=== PATIENT | female | born 1955 | race African-American/Black ===

== ENCOUNTER → 2017-01-26 | Outpatient (CLI) | payer MEDICARE, OTHER ==
[~2017-01-26] MED LIST: ALENDRONATE SOD70 M1 PO; ASPIRIN EC81 M1 PO; AZELASTINE137 MCG/01; BACLOFEN10 MG PO; BACTROBAN15 GM TOP; CALCIUM 500 +1 EAC5 PO; CARAFATE1 GM PO; CICLOPIROX TOP; COZAAR25 MG PO; CYANOCOBALAM1000 MCG PO; FERRO-TIME325 MG PO; FOLIC ACID1 MG PO; FOSAMAX70 MG PO; K-TAB ER20 MEQ PO; KCL PO; LACTULOSE10 G/15 M1 PO; LACTULOSE10 G/15 ML PO; LACTULOSE10 GM/152 PO; LASIX PO; LASIX20 MG PO; LEVAQUIN250 MG PO; LEVAQUIN750 M1 PO; LIORESAL10 MG PO; LOPRESSOR PO; LOTREL 5/20 MG1 CAP PO; MAG-OX 400400 M1 PO; MAG-OX 400400 MG PO; MAG-OXIDE400 MG PO; MELOXICAM15 MG PO; MOBIC15 MG PO; MORGIDOX100 MG PO; NEXIUM PO; NORCO 10-325 TA1 TAB PO; PANTOPRAZOLE SO40 MG PO; PROAIR RESPICL90 MCG INH; PROTONIX PO; PROTONIX20 MG DOB; SYNTHROID PO; SYNTHROID125 PO; SYNTHROID175 MCG PO; SYNTHROID25 MCG PO; TOPAMAX50 MG PO; VITAMIN C500 M1 PO; VITAMIN C500 MG PO; VOLTAREN75 MG PO; XIFAXAN550 MG PO
--- NOTE | ~2017-01-26 | XA30 ---
[facility] A Service of [facility] & [facility] RADIOLOGY TEXT RESULTS PATIENT: RICHARD JANE LOCATION: CIVR : 55 UNIT #: [id number] AGE: [address]: Leonidas Zuniga MD SEX: F ORDER DR: [id number] [facility]. [place], [place] [address] [id number] O MR#: [id number] Acc #: [id number] NAME: RICHARD JANE. : 1955 SEX: F STUDY DATE/TIME: 01/26/2017 12:20 UNIT: [facility] ROOM: STUDY DESCRIPTION: XA Arthrocentesis Major Joint Attending Physician: Leonidas Zuniga M.D. Ordering Physician: Leonidas Zuniga M.D. Primary Care Physician: No Primary Care Physician MEDICAL IMAGING REPORT This report is preliminary unless electronic signature is present EXAM Fluoroscopically-guided left hip injection INDICATION Left hip pain. PROCEDURE The risks, benefits, and alternatives to the procedure were explained to the patient, and signed, informed consent was obtained. She was placed supine on the angiographic table and was prepped and draped in the usual sterile fashion. Time-out was performed as per protocol skin and subcutaneous tissues were anesthetized with buffered lidocaine and a 22-gauge spinal needle was advanced into the joint space. Contrast was injected which confirmed location within the joint space and I subsequently instilled a combination of lidocaine Bupivacaine and Depo-Medrol. Needle was then removed and manual pressure was applied until hemostasis was obtained, patient tolerated the procedure well and there were no immediate complications. Total fluoroscopy time was 0.3 minutes and a single fluoroscopic image was obtained. IMPRESSION Technically successful fluoroscopically guided left hip injection as noted above fluoroscopy was used during the procedure and permanent images were saved. Please note this patient does have a healing fracture of the left inferior pubic ramus Dictated by... Sera Elizabeth M.D. THIS IS AN ELECTRONICALLY VERIFIED REPORT Sera Elizabeth M.D. at 02/01/2017 1:16 PM AFF/rnr [facility] A Service of [facility] & [facility] RADIOLOGY TEXT RESULTS PATIENT: RICHARD JANE LOCATION: [facility] #: [id number] : 55 UNIT #: [id number] AGE: [address]: Leonidas Zuniga MD SEX: F ORDER DR: TD: 01/27/2017 04:44 JOB #: [id number] MEDICAL IMAGING REPORT COPY
== END | disposition home or self-care (01) ==
LOC: CIVR 11:58
PROC: 3E0U33Z Introduction of Anti-inflammatory into Joints, Percutaneous Approach (ICD-10-PCS; principal; 2017-01-26)
PROC: 3E0U3BZ Introduction of Anesthetic Agent into Joints, Percutaneous Approach (ICD-10-PCS; 2017-01-26)
DX: M16.12 Unilateral primary osteoarthritis, left hip (principal); S32.592S Other specified fracture of left pubis, sequela
CPT/HCPCS: 77002; J1030; Q9966

== ENCOUNTER → 2017-05-08 | Outpatient (CLI) | payer MEDICARE, OTHER ==
--- NOTE | ~2017-05-08 | XA30 ---
[facility] A Service of [facility] & [facility] RADIOLOGY TEXT RESULTS PATIENT: RICHARD JANE LOCATION: [facility] : 55 UNIT #: [id number] AGE: [address]: Leonidas Zuniga MD SEX: F ORDER DR: [id number] [facility]. [place], [place] [address] [id number] O MR#: [id number] Acc #: [id number] NAME: RICHARD JANE. : 1955 SEX: F STUDY DATE/TIME: 05/08/2017 10:33 UNIT: [facility] ROOM: STUDY DESCRIPTION: XA Arthrocentesis Major Joint Attending Physician: Leonidas Zuniga M.D. Ordering Physician: Leonidas Zuniga M.D. Primary Care Physician: Panfilo Baires M.D. MEDICAL IMAGING REPORT This report is preliminary unless electronic signature is present EXAM Fluoroscopically-guided right hip injection INDICATION Right hip pain. Patient reports a history of a fall in September of 2016 and has had pain ever since. PROCEDURE The risks, benefits, and alternatives to the procedure were explained to the patient, and a signed, informed consent was obtained. She was placed supine on the angiographic table and was prepped and draped in usual sterile fashion. Time-out was performed as per protocol. Skin and subcutaneous tissues were anesthetized with buffered lidocaine and a 28-gauge spinal needle was advanced into the joint space. Contrast was injected which confirmed location within the joint space. Joint space then instilled with a combination of lidocaine, bupivacaine, and Depo-Medrol. Needle was then removed and manual pressure was applied until hemostasis was obtained. Patient tolerated the procedure well and there were no immediate complications. She is noted to have healing fractures of the inferior and superior pubic rami bilaterally. Total fluoroscopy time was 0.1 minutes. AK was 14 mGy. IMPRESSION Technically successful fluoroscopically-guided right hip injection as noted above. Fluoroscopy was used during the procedure and permanent images were saved. Please note patient is also noted to have healing bilateral superior and inferior pubic rami fractures. Dictated by... Sera Elizabeth M.D. THIS IS AN ELECTRONICALLY VERIFIED REPORT [facility] A Service of [facility] & [facility] RADIOLOGY TEXT RESULTS PATIENT: RICHARD JANE LOCATION: [facility] : 55 UNIT #: [id number] AGE: [address]: Leonidas Zuniga MD SEX: F ORDER DR: Sera Elizabeth M.D. at 05/11/2017 3:27 PM AFF/aa TD: 05/11/2017 08:08 JOB #: [id number] MEDICAL IMAGING REPORT Page 1 of 1 COPY
== END | disposition home or self-care (01) ==
LOC: CIVR 10:17
PROC: 3E0U33Z Introduction of Anti-inflammatory into Joints, Percutaneous Approach (ICD-10-PCS; principal; 2017-05-08)
PROC: 3E0U3BZ Introduction of Anesthetic Agent into Joints, Percutaneous Approach (ICD-10-PCS; 2017-05-08)
DX: M19.90 Unspecified osteoarthritis, unspecified site (principal); M25.551 Pain in right hip; S32.502D Unspecified fracture of left pubis, subsequent encounter for fracture with routine healing; S32.501D Unspecified fracture of right pubis, subsequent encounter for fracture with routine healing
CPT/HCPCS: 77002; J1030; Q9966

== ENCOUNTER 2017-07-04 15:23 | Inpatient (IN) | payer MEDICARE, OTHER ==
[~2017-07-04] VITALS: Ht 165.1 cm; Wt 65.9 kg
--- NOTE | ~2017-07-04 | EKG ---
PATIENT: RICHARD JANE UNIT #: [id number] Ventricular Rate: 103 BPM Atrial Rate: 103 BPM P-R Interval: 176 ms QRS Duration: 80 ms Q-T Interval: 372 ms QTC Calculation(Bezet): 487 ms P [place]: 72 degrees Calculated R [place]: 0 degrees Calculated T [place]: 53 degrees Diagnosis Line: Sinus tachycardia Diagnosis Line: Possible Left atrial enlargement Diagnosis Line: Borderline ECG Diagnosis Line: When compared with ECG of 22-SEP-2016 06:14, Diagnosis Line: No significant change was found Diagnosis Line: Confirmed by NIURKA RAMOS MD ([id number]) on Diagnosis Line: 07/04/2017 10:52:13 PM INTERPRETING MD: FERNANDEZ
--- NOTE | ~2017-07-04 | CO ---
Unit #: [id number] #: [id number] Patient: NELLY LYNCH [id number] [facility] [address] [facility]. [place], [place] [address] [id number] I MR#: [id number] NAME: NELLY LYNCH. ROOM: 341 Age: 62 Sex: F Admission Date: 07/04/2017 : 1955 Attending Physician: Bryce Tay M.D. Primary Care Physician: Primary Care Physician No CONSULTATION REPORT REASON FOR CONSULTATION Followup. HISTORY OF PRESENT ILLNESS Ms. Nelly Lynch is 62-year-old female seen in room 341, bed 1, at [facility] on 07/12/2017. The patient was lying comfortably in bed. Seemed somewhat anxious, nervous, confused. Able to answer her name, but unable to give any detailed information. No restraint needed. The patient seemed somewhat sleepy. Tolerating medication fairly well. The patient's CIWA protocol was discontinued and also Ativan was discontinued. The patient's vital signs: 98.2, 108, 16, 148/78. Oxygen saturation 100%. The patient was less agitated. The patient is currently on haloperidol 5 mg 3 times a day and Cogentin was discontinued. Complete review of systems: Unremarkable. MENTAL STATUS EXAMINATION General Appearance: The patient dressed casually in hospital attire, lying comfortably in bed. The patient has a sister. Attention span/concentration: Poor. Speech: Rambling. Poor articulation. Orientation in self. Mood and affect labile. Thought process: Circumstantial. Thought content: Guarded, paranoid, but denied any thoughts of harming self or others. Thought process: Circumstantial. Thought content: Recent and remote memory: Language unable to assess. Fund of knowledge: Unable to assess. Insight and judgment: Impaired. DIAGNOSES PSYCHIATRIC: Delirium F05. Psychosis, not otherwise specified, F29.0 ASSESSMENT AND PLAN Advised to continue with a sitter, one-to-one monitoring. Continue with Haldol. Advised to hold if the patient too sleepy. Increase with a plan to discontinue Cogentin, but monitor for any EPS symptom. Also, cut back on Haldol slowly. Please feel free to call if any question, telephone #[phone]. Dictated by... Gerry Persaud M.D. Unit #: [id number] #: [id number] Patient: NELLY LYNCH MARIALUISA/nasim TD: 07/13/2017 10:29 JOB #: [id number] CONSULTATION REPORT Page 1 of 1 X Gerry Persaud MD X CONSULTATION REPORT
--- NOTE | ~2017-07-04 | XA198 ---
[facility] A Service of [facility] RADIOLOGY TEXT RESULTS PATIENT: RICHARD JANE LOCATION: [facility] 341 : 55 UNIT #: [id number] AGE: [address]: Harry Gordon MD SEX: F ORDER DR: [id number] [address] [address] [id number] I MR#: [id number] Acc #: [id number] NAME: RICHARD JANE : 1955 SEX: F STUDY DATE/TIME: 07/16/2017 8:59 UNIT: [address] ROOM: [facility] STUDY DESCRIPTION: XA Spinal Puncture Attending Physician: Harry Gordon M.D. Ordering Physician: Bryce Tay M.D. Primary Care Physician: No Primary Care Physician MEDICAL IMAGING REPORT This report is preliminary unless electronic signature is present EXAM Fluoroscopically-guided lumbar puncture. CLINICAL HISTORY Fever and confusion. Lumbar puncture requested. PROCEDURE After informed consent was obtained, a skin site was selected with fluoroscopic guidance and marked and sterilely prepped and draped. Following local anesthesia, initial attempt at L4-5 yielded a no fluid despite satisfactory confirmation of needle tip position within the spinal canal. Subsequently, at the L3-4 level, a 20-guage spinal needle was used after local anesthesia and 10 mL of clear colorless CSF was obtained without complication. Total fluoro time 2.7 minutes and single spot image preserved. IMPRESSION Successful fluoroscopically guided lumbar puncture. 10 mL of clear colorless was CSF was obtained without complication. Dictated by... Oscar Reynolds M.D. THIS IS AN ELECTRONICALLY VERIFIED REPORT Oscar Reynolds M.D. at 07/20/2017 4:09 PM TEV/jww TD: 07/16/2017 23:34 JOB #: [id number] [facility] A Service [facility] RADIOLOGY TEXT RESULTS PATIENT: RICHARD JANE LOCATION: [facility] 341 : 55 UNIT #: [id number] AGE: [address]: Harry Gordon MD SEX: F ORDER DR: MEDICAL IMAGING REPORT Page 1 of 1 COPY
--- NOTE | ~2017-07-04 | CO ---
Unit #: [id number] #: [id number] Patient: RICHARD JANE [id number] [place], [place] [address] [id number] I MR#: [id number] NAME: RICHARD JANE. ROOM: 341 Age: 62 Sex: F Admission Date: 07/04/2017 : 1955 Attending Physician: Bryce Tay M.D. Primary Care Physician: Primary Care Physician No Consultation Date: 07/11/2017 CONSULTATION REPORT REASON FOR CONSULTATION Hepatic encephalopathy, psychosis, and delirium. HISTORY OF PRESENT ILLNESS Ms. Villegas is a 62-year-old female, seen in room 341, bed 1, on 07/11/2017. The patient is keeping her eyes closed. The patient was agitated and was pulling her IV. Needing one-to-one sitter. The patient talking to the kenney, disorganized behavior, delusional, attending to internal stimuli, auditory and visual hallucination, agitation. Vital signs; temperature 98.6, heart rate 117, respiratory rate 16, blood pressure 143/82, and oxygen saturation 100%. The patient was unable to give any reliable information. Information obtained from the nursing staff, sitter, as well as chart reviewed. The patient diagnosed with hepatic encephalopathy, UTI, history of cirrhosis, hypothyroidism, and multiple health conditions. PAST PSYCHIATRIC HISTORY Remarkable for history of depression and anxiety. No history of any inpatient treatment or suicide attempt. MEDICAL HISTORY History of hypertension, cirrhosis secondary to alcohol abuse, mitral valve prolapse, chronic low-back pain, traumatic brain injury, depression, and knee surgery. ALLERGIES To penicillin, sulfa, aspirin, zinc, Norvasc, and latex. HOME MEDICATIONS Albuterol, Fosamax, ascorbic acid, aspirin, Astelin, baclofen, calcium, Nexium, folic acid, Lasix, lactulose, Synthroid, Cozaar, magnesium oxide, Mobic, Lopressor, and Bactroban. FAMILY HISTORY AND SOCIAL HISTORY The patient's family history is unavailable at this time. No known history of any abuse, but history of alcohol abuse as mentioned above. REVIEW OF SYSTEMS Complete review of systems is unremarkable except as mentioned above. MENTAL STATUS EXAMINATION General appearance; the patient dressed in hospital attire, lying in a recliner, confused, and agitated. Attention span and concentration, poor. Speech, difficult to understand. Orientation, unable to assess. Mood and Unit #: [id number] #: [id number] Patient: RICHARD JANE affect, labile. Thought process and thought content, unable to assess. Recent and remote memory, language, and fund of knowledge, unable to assess. Insight and judgment, impaired. DIAGNOSES Psychiatric: Delirium, F05 and psychosis, not otherwise specified, F29.0. Secondary diagnosis: Deferred. Medical diagnosis: Please refer to H and P. Stressors: Psychosocial stressors. ASSESSMENT/PLAN 1. Unable to provide supportive psychotherapy and psychoeducation as the patient unable to comprehend. 2. Recommending to continue with sitter and one-to-one monitoring for safety. Continue with the CIWA protocol. Recommending Haldol 5 mg t.i.d., Cogentin 1 mg t.i.d., and Ativan 0.5 mg t.i.d. Advised to hold medication if the patient too sleepy. We will continue to follow and make further adjustment if needed. Please feel free to call if any questions, telephone #[phone]. Dictated by... Rosi Paulino/jordan TD: 07/11/2017 19:46 JOB #: [id number] CONSULTATION REPORT Page 1 of 1 X Gerry Persaud MD X CONSULTATION REPORT
--- NOTE | ~2017-07-04 | CO ---
Unit #: [id number] #: [id number] Patient: RICHARD JANE [id number] [facility] [address] [facility]. [place], [place] [address] [id number] I MR#: [id number] NAME: RICHARD JANE. ROOM: 341 Age: 62 Sex: F Admission Date: 07/04/2017 : 1955 Attending Physician: Harry Gordon M.D. Primary Care Physician: Primary Care Physician No Consultation Date: 07/15/2017 CONSULTATION REPORT PRIMARY CARE PHYSICIAN Not known. REASON FOR CONSULTATION Mental status changes, possible hepatic encephalopathy. PATIENT IDENTIFICATION This is a 62-year-old right-handed white female, who was evaluated in room 342 at [facility]. SOURCE OF INFORMATION Actually the medical records and my discussion with Dr. Tay. PROBLEM LIST 1. She was admitted for hepatic encephalopathy and UTI. She had also accelerated hypertension. She has Graves disease. 2. History of GI bleeding and prior EGD showing Bell-Wilder tear. 3. Mitral valve prolapse. 4. Chronic back pain, status post epidural injection. 5. Traumatic brain injury 13 years ago. 6. Depression. 7. Hysterectomy and had fibroids. 8. Knee surgery. 9. Previous colonoscopy with diverticular disease and possible thyroidectomy. 10. Psychotic issues. HISTORY OF PRESENT ILLNESS This is a 62-year-old female, who was actually admitted on 07/04/2017 and I talked to Dr. Tay yesterday and he was concerned that despite all the labs improving, she still has significant lag, so we requested MRI which did not show any acute stroke, but there is a possibility of a basal ganglia and temporal increased signal and herpetic encephalitis could not be ruled out. She seemed to be improving. She did tell me she was in the hospital. She is followed some simple commands, but again fixing everything else and still there is deficit that was concerning. There is no real neck stiffness because it does look like her neck is stiff, but when I asked her to do chin to chest, she had a good effort. There was no Kernig's or Brudzinski's. Nobody has witnessed the seizure and she may be improving, but still deficit is there, so the combined consensus was to look for LP and we will go from there. No history of falls or injuries. Unit #: [id number] #: [id number] Patient: RICHARD JANE Taking multiple medication. Nothing changes. Prior history of lipoma also. Psychiatry is seen for possibility of delirium and they are treating her aggressively. As I mentioned before, some improvement. PAST MEDICAL HISTORY As discussed above. PAST SURGICAL HISTORY As discussed above. ALLERGIES Penicillin, sulfa, aspirin, Zinc, Norvasc, latex. HOME MEDICATIONS Albuterol 2 puffs q.i.d. as needed., Fosamax 70 mg a day, ascorbic acid 500 mg t.i.d., aspirin 81 mg daily, Astelin nasal spray, baclofen 10 mg t.i.d., calcium plus D two tablets b.i.d., Nexium 40 mg daily, iron sulfate 325 mg t.i.d., folic acid 1 mg daily, Lasix 40 mg daily, lactulose 30 mL q.i.d., Synthroid 0.175 mg daily, Cozaar 25 mg daily, magnesium oxide daily, Mobic 15 mg daily, Lopressor 12.5 mg b.i.d., Bactroban ointment, Sarna lotion, Xifaxan 550 mg b.i.d. FAMILY HISTORY No primary neurologic issues. No diabetes. SOCIAL HISTORY No recent alcohol, tobacco, or drugs, but her urine drug screen positive for marijuana . REVIEW OF SYSTEMS Really could not be obtained in detail because of her present delirious state. When asked specifically, she has no headaches. She has no arm pain. No chest pain. No shortness of air. She is following some simple commands. No acute back problems. Psychiatric issue was delirium. Neurologic issue was weakness. No acute hematologic, dermatologic, or endocrine issues. No active nausea, vomiting, or diarrhea. No shortness of air. No chest pain. PHYSICAL EXAMINATION VITAL SIGNS: Temperature 98.8, pulse 129, respirations 16, blood pressure is 146/75, O2 saturations were 97% to 100%, weight of 139 pounds. NEUROLOGIC: The patient is lethargic, but arousable. She is having asterixis. She is having some myoclonus. She can tell me she is at [facility], but otherwise she is not really able to tell me anything about orientation. She can name. She can follow some simple commands. She gave me thumbs up. No right or left confusion. She moved all extremities. Cranial examination; she does respond to threats in the primary mil[place]. Unit #: [id number] #: [id number] Patient: RICHARD JANE Pupils are sluggishly reactive. Eye movements are conjugate. I did not see any ptosis. I did not see any nystagmus. Extraocular movements are intact. Sensation on the face and scalp are normal. Strength of muscles of facial expression seemed to be symmetric. Hearing seemed to be intact. Tongue was midline. I could not visualize oropharynx or uvula. Head turning was spontaneous. I am concerned that there is no neck stiffness, maybe she is keeping it stiff and when asked to try to do chin to chest, she attempted pretty good. Motor examination; she has decreased bulk and tone. She has asterixis. Strength was 4/5 all over. Sensory examination intact for soft touch and pain. Extinction is questionable. Romberg was not evaluated. Gait examination was deferred. I could not get any reflexes. Toes are mute. Coordination really could not do wifuxq-gg-dwua-to-finger rapid alternating movements or epob-mo-aawk. DIAGNOSTIC STUDIES LABORATORY RESULTS: AST is 59, it was not really bad; alkaline phosphatase is 128 and then again that is stable. Her ammonia has dropped from 194 to 14 day before yesterday. It was low in the last few days anyway. B12 was checked 1500. TSH was 0.06, free T4 was 2.80. White count was 7.2, H and H of 11.7 and 33.5, platelet count was 144. Urine drug screen on admission showed positive benzodiazepines, marijuana, and opioids. Urinalysis; also possibility of UTI with 10 to 25 wbc's on admission and 4+ bacteria on admission. IMAGING STUDIES: Brain MRI which was reviewed. The concern is the signal change could this be herpetic encephalitis that could she have had seizures. There is nothing suggesting that she has had any seizure-like activity. IMPRESSION 1. Encephalopathy. There were multiple issues and this all could be a hepatic encephalopathy and slow recovery and lag, but I agree with Dr. Tay that we need to look at other possibilities and check LP, start antivirals. I will check other labs and we will go from there. He is starting acyclovir. I do not think this is active infection. Otherwise, her tachycardia is concerning could she be undergoing some sort of withdrawal. We will see how things log turner. I will keep you informed. Call me for any other questions, issues, or concerns. I will check EEG if needed. I will consider antiepileptics if needed, but right now, the differential diagnosis is multifactorial toxic and metabolic encephalopathy. 2. Rule out herpetic encephalitis and go from there. Dictated by... Rosi Cortes/jordan TD: 07/16/2017 18:36 JOB #: [id number] Unit #: [id number] #: [id number] Patient: LIANE JANECRISTO Isidro CONSULTATION REPORT Page 1 of 1 X Anita Kline MD X CONSULTATION REPORT
--- NOTE | ~2017-07-04 | HP ---
Unit #: [id number] #: [id number] Patient: RICHARD JANE [id number] [address] [address] [id number] I MR#: [id number] NAME: RICHARD JANE. ROOM: 341 Age: 62 Sex: F Admission Date: 07/04/2017 : 1955 Attending Physician: Cora Fallon M.D. Primary Care Physician: No Primary Care Physician HISTORY AND PHYSICAL CHIEF COMPLAINT Hepatic encephalopathy, UTI. HISTORY This 62-year-old female with cirrhosis, hypothyroidism, is admitted for hepatic encephalopathy. I am told by the ER physician that the patient stopped her lactulose recently. She became increasingly confused and was brought to this emergency department this afternoon with initial blood pressure 194/94. Ammonia level was 194. In the ER she was given two doses of lactulose, bolused with IV fluids, given a p.o. Rally pack. She is quite lethargic on exam. She does arouse, however. PAST MEDICAL HISTORY 1. Possible hypertension in the past. 2. Cirrhosis secondary to alcohol abuse with hepatic encephalopathy. 3. Graves disease with resultant hypothyroidism, status post treatment. 4. Upper GI bleed, admitted 08/2015. EGD showed gastritis or Bell-Wilder tear. 5. Mitral valve prolapse. 6. Chronic low back pain, status post epidural steroid injections. 7. Previous echo showing normal ejection fraction. 8. Traumatic brain injury 13 years ago. 9. Depression. 10. Hysterectomy with fibroids. 11. Knee surgery. 12. Previous colonoscopy with diverticular disease. 13. Possible thyroidectomy. ALLERGIES Penicillin, sulfa, aspirin, zinc, Norvasc, latex. HOME MEDICATIONS 1. Albuterol two puffs q.i.d. as needed. 2. Fosamax 70 mg daily. 3. Ascorbic acid 500 mg t.i.d. 4. Aspirin 81 mg daily. 5. Astelin nasal spray. 6. Baclofen 10 mg t.i.d. 7. Calcium plus D, two tablets b.i.d. 8. Nexium 40 mg daily. 9. Iron sulfate 325 mg t.i.d. 10. Folic acid 1 mg daily. Unit #: [id number] #: [id number] Patient: RICHARD JANE 11. Lasix 40 mg daily. 12. Lactulose 30 mL q.i.d. 13. Synthroid 0.175 mg daily. 14. Cozaar 25 mg daily. 15. Magnesium oxide daily. 16. Mobic 15 mg daily. 17. Lopressor, I believe is 12.5 mg b.i.d. 18. Bactroban ointment. 19. Sarna lotion. 20. Xifaxan 550 mg b.i.d. FAMILY HISTORY Negative for diabetes. SOCIAL HISTORY The patient no longer smokes, no longer drinks alcohol. REVIEW OF SYSTEMS Impossible to obtain as patient is fairly lethargic. PHYSICAL EXAMINATION GENERAL: Lethargic 62-year-old female who does arouse. VITAL SIGNS: Temperature 98.5, pulse 124, respirations 18, blood pressure 194/94. O2 saturation is 100% on room air. HEENT: Eyes PERRLA. Pharynx benign from what I can tell. NECK: Supple without adenopathy or thyromegaly. CHEST: Clear. CARDIAC: Normal S1 and S2 without murmur. ABDOMEN: Bowel sounds are present. No hepatosplenomegaly, tenderness or masses. EXTREMITIES: Without C, C or E. Pedal pulses are present. NEUROLOGIC EXAMINATION: The patient is somnolent but does arouse. Moves her extremities, says her name. DIAGNOSTIC STUDIES LABORATORY: Admission labs - hematocrit is 41.6, MCV is 101.4, normal white count, platelet count is 113. Has been low in the past as well. INR normal. SMA-12 - sodium 147, chloride 113, albumin 3.4, AST 68, ALT 52, alk. phos. 217. These values are higher than previously. Ammonia level 194, TSH is low at 0.21. Urine tox screen positive for benzos, marijuana, opiates. Urinalysis - 1+ leukocyte esterase with 10-25 white cells, 4+ bacteria. IMAGING: Chest x-ray - no acute disease. CARDIOVASCULAR: EKG - sinus tachycardia, rate 103, normal appearing. ASSESSMENT 1. Hepatic encephalopathy with underlying cirrhosis. Patient stopped her lactulose. 2. Positive urine tox screen suspicious for polysubstance abuse. 3. UTI. 4. Graves disease, now hypothyroid after treatment. 5. History of GI bleeding. Unit #: [id number] #: [id number] Patient: RICHARD JANE 6. Accelerated hypertension. 7. Mild hypernatremia. PLANS 1. Restart lactulose and Xifaxan. 2. Hypotonic IV fluids. 3. Rocephin. 4. SCDs for DVT prophylaxis. 5. Recheck all labs in the morning. 6. One dose of Narcan. 7. Blood pressure control. Dictated by Rosi Villa/df TD: 07/05/2017 05:26 JOB #: [id number] HISTORY AND PHYSICAL Page 1 of 1 X Cora Fallon MD X HISTORY AND PHYSICAL
--- NOTE | ~2017-07-04 | CO ---
Unit #: [id number] #: [id number] Patient: NELLY LYNCH [id number] [address] [address] [id number] I MR#: [id number] NAME: NELLY LYNCH. ROOM: 341 Age: 62 Sex: F Admission Date: 07/04/2017 : 1955 Attending Physician: Bryce Tay M.D. Primary Care Physician: No Primary Care Physician Consultation Date: 07/13/2017 CONSULTATION REPORT REASON FOR CONSULTATION Followup. DISCUSSION Ms. Nelly Lynch is a 62-year-old -Slov[place] female seen in room 341, bed 1 on 07/13/2017. Patient dressed in hospital attire, very guarded, paranoid. Patient unable to give any reliable information, able to tell her name. No agitation. Patient did not require any restraint. No sitter. Patient continues to be confused. Vital signs are 98.2, 133, 20, 158/73, oxygen saturation 100%. REVIEW OF SYSTEMS A complete review of systems unremarkable. MENTAL STATUS EXAMINATION General appearance: Patient dressed in hospital attire. Speech almost whispering, minimal output. Orientation: Unable to assess. Mood and affect flat. Thought process in coherent. Thought content: Unable to assess. Recent and remote memory, language, fund of knowledge unable to assess. Insight and judgment impaired. DIAGNOSIS Delirium, F05. ASSESSMENT AND PLAN Recommending at this time to continue with the Haldol but advised to Cogentin along with that, 0.5 mg three times a day to prevent any EPS symptoms. Will continue to follow. Please feel free to call if any questions, . Dictated by... Rosi Paulino TD: 07/15/2017 13:22 JOB #: [id number] Unit #: [id number] #: [id number] Patient: NELLY LYNCH CONSULTATION REPORT Page 1 of 1 X Gerry Persaud MD CONSULTATION REPORT
--- NOTE | ~2017-07-04 | CO ---
Unit #: [id number] #: [id number] Patient: NELLY LYNCH [id number] [address] [address] [id number] I MR#: [id number] NAME: NELLY LYNCH. ROOM: 341 Age: 62 Sex: F Admission Date: 07/04/2017 : 1955 Attending Physician: Harry Gordon M.D. Primary Care Physician: Primary Care Physician No Consultation Date: 07/17/2017 CONSULTATION REPORT DISCUSSION Ms. Nelly Lynch is a 62-year-old female, diagnosed with hepatic encephalopathy, seen on 07/17/2017 in room 341, bed 1. The patient was unable to give any reliable information. The patient seemed to be preoccupied, responsive to her name, but unable to give any reliable information. Information was obtained from nursing staff. The patient did not require any seclusion or restraint. No sitter was needed. The patient's vital signs; temperature 98.8, pulse 118, respirations 18, blood pressure 126/67, and oxygen saturation 98%. The patient is tolerating the medications fairly well. No side effects from medication. director workers compensation is currently working on appropriate placement for the patient. The patient is not eating well, but compliant with medication. REVIEW OF SYSTEMS The patient's complete review of systems unremarkable. MENTAL STATUS EXAMINATION General appearance; the patient is dressed casually in hospital attire, lying comfortably, seemed somewhat preoccupied. Attention span and concentration, poor. Speech, difficult to understand. Orientation, unable to assess. Mood and affect, labile. Thought process and thought content, unable to assess, guarded and paranoid. Recent and remote memory, unable to assess. Language, fund of knowledge, insight and judgment, impaired. DIAGNOSES Psychiatric: Delirium, F05; hepatic encephalopathy. ASSESSMENT/PLAN Advised to continue with current medication and therapeutic protocol. If needed, consider further adjustment of medication. Please feel free to call if any question, telephone #[phone]. Dictated by... Gerry Persaud M.D. MARIALUISA/jordan TD: 07/18/2017 02:55 JOB #: [id number] Unit #: [id number] #: [id number] Patient: NELLY LYNCH CONSULTATION REPORT Page 1 of 1 X Gerry Persaud MD CONSULTATION REPORT
--- NOTE | ~2017-07-04 | FU ---
[facility] Nutrition Therapy DATE: 07/17/17 Patient: RICHARD JANE Physician: ANY Address: [address] [place] [address] Room/Bed: [address] [place] [address], Zip: [place] [address] Admit Date: 07/04/17 Date of : [birth year] Height: 5 5 Weight: 143 65.2 NUTRITION MONITORING/FOLLOW-UP: Reason: Nutrition follow-up Admitting dx: 62 y/o female admitted with hepatic encephalopathy Anthropometrics: Ht: 65", admission wt: 69 kg, current wt: 65.2 kg, BMI: 25 (overweight; based on admission wt) Labs: Reviewed Meds: Reviewed GI: BM 07/16 Skin: Issues noted, no edema Assessment: Chart reviewed, events noted. Per nursing, although the patient has had a clear liquid diet ordered in [facility] since admission, she has been on fulls and then regular texture since 07/12 (per [employer] recs), but the diet order change in [facility] was not addressed until today. The patient is a feeder. She has been accepted at [facility], pending discharge. See nutrition dx, goals and recs below. Will follow. Dx: Inadequate oral intake r/t AMS AEB CL/NPO x 8 days - RESOLVED New nutrition dx: Predicted suboptimal energy intake r/t AMS AEB recent diet advancement, possible need for ONS. Intervention: Ensure TID? Monitoring, Evaluation and Goals: 1. Tolerance of PO diet advancement with PO intake > 50% of meals - IN PROGRESS 2. Maintain weight status - IN PROGRESS 3. Lytes WNL - MET Monitor: per protocol, criteria to determine if above goals met Recommendations: 1. Continue regular diet with thin liquids. Patient requires full feeding assistance. 2. If PO intake is < 50% of meals please order Ensure Enlive BID. [facility] Nutrition Therapy DATE: 07/17/17 Patient: RICHARD JANE Physician: ANY Address: [address] [place] [address] Room/Bed: [address] [place] [address], Zip: [place] [address] Admit Date: 07/04/17 Date of : [birth year] Height: 5 5 Weight: 143 65.2 Status: Mild nutrition risk Respectfully, Selin Maguire RD, LD Food and Nutritional Services [facility] cc: client file
--- NOTE | ~2017-07-04 | A ---
[facility] Nutrition Therapy DATE: 07/09/17 Patient: RICHARD JANE Physician: ANY Address: [address] [place] [address] Room/Bed: [address] [place] [address], Zip: [place] [address] Admit Date: 07/04/17 Date of : [birth year] Height: 5 5 Weight: 154 70 NUTRITIONAL ASSESSMENT: REASON: NPO/ clear liquids x 5 days 62 yo female admitted for hepatic encephalopathy PMH: EtOH abuse, hypothyroid, diverticular disease, GI bleed, TBI Anthropometrics: Ht: 65" Wt: 69 kg BMI: 25.3 Labs: Na+ 132 BUN 5 Creat 0.5 Mg++ 1.3 NH3+ 55 (from 07/08) Meds: NaCl + thiamine, lactulose, therapeutic formula, zofran, MgS04, KCl, protonix, xifaxin, synthroid (PO) I/O & Bowel function: 1500/3, last BM 07/09 Skin Integrity: Skin tear RFA No edema noted Diet: Clear liquid Assessment: Chart reviewed, events noted. 62 yo female with h/o alcohol abuse admitted for hepatic encephalopathy. Pt has been NPO or on clear liquids x 5 days. Clear liquid diet ordered 07/06. Pt continues to be confused with AMS per RN report. RN believes pt would benefit from feeding assistance, because she does not eat unless prompted. RN reports that the pt has had minimal PO intake of clear liquids today. Pt is not appropriate for nutrition interview/ diet education at this time. RD explained to RN that the pt would benefit from supplemental nutrition, may need enteral access if PO intake does not improve. Dx: Inadequate oral intake RT AMS, hepatic encephalopathy AEB clear liquids/ NPO x 5 days. Intervention: 1. Advance to regular diet once feasible 2. Ensure clear TID Monitoring, Evaluation and Goals: 1. Oral intake; tolerate 50-100% of meals and supplements 2. Weight; prvent unintentional weight loss 3. Prevent micro/ macronutrient deficiency [facility] Nutrition Therapy DATE: 07/09/17 Patient: RICHARD JANE Physician: AYN Address: [address] [place] [address] Room/Bed: [address] [place] [address], Zip: [place] [address] Admit Date: 07/04/17 Date of : [birth year] Height: 5 5 Weight: 154 70 Recommendations: 1. Please provide feeding assistance, as RN reports that the pt does not eat unless prompted. 2. Ensure clear TID for supplemental nutrition. 3. Once medically feasible, advance to a regular diet as tolerated. 4. Continue MVI + minerals and thiamine supplementation. 5. If unable to advance to solid food/ regular diet, consider obtaining enteral access for supplemental nutrition. If ordered by MD, would start Jevity 1.5 @ 20 mL/hr x 20 hrs (hold for two hours before and two hours after synthroid administration). -Increase by 10 mL q 8 hrs as tolerated to goal of 60 mL/hr x 20 hrs to provide: 1800 kcals/ 77 grams protein/ 912 mL free H20 Pt is at moderate nutritional risk. RD will follow hospital course per protocol. Respectfully, ELIZA DURON RD, LD Food and Nutritional Services [facility] cc: client file
--- NOTE | ~2017-07-04 | CO ---
Unit #: [id number] #: [id number] Patient: RICHARD JANE H [id number] [address] [place], [place] [address] [id number] I MR#: [id number] NAME: RICHARD JANE ROOM: 341 Age: 62 Sex: F Admission Date: 07/04/2017 : 1955 Attending Physician: Harry Gordon M.D. Primary Care Physician: Primary Care Physician No CONSULTATION REPORT DICTATOR Dr. Bryce Tay. HOSPITAL COURSE The patient is a 32-year-old woman with a history significant for cirrhosis, hypothyroidism, and was admitted for hepatic encephalopathy. Her ammonia level was 194. The patient was started on lactulose and rifaximin, and her ammonia level eventually returned normal range. However, the patient continued to have metabolic encephalopathy. She continued to remain confused. Initially, her urinalysis demonstrated 10 to 25 wbc's. She was started on IV antibiotic Rocephin. Urine culture grew Klebsiella pneumoniae, which was sensitive to Rocephin. Followup urinalysis demonstrated resolution of UTI after completing her course of Rocephin. Also on admission, the patient had hypernatremia with a sodium of 148. She was given IV fluids for hydration and her sodium had stabilized around 135. The patient has a history of hypothyroidism and has been on Synthroid 175 mcg at home. Followup TSH demonstrated a TSH of 0.06 and a free T4 of 2.8. Her Synthroid dose has been reduced from 175 mcg to 100 mcg. Preliminary blood cultures show no growth up to 24 hours. The patient underwent an MRI of her brain for evaluation of continued encephalopathy, which demonstrated no acute stroke, no space occupying lesion, no hydrocephalus, no midline shift. However, there was increased T2 signal noted bilaterally in the basal ganglia and bilaterally in the medial aspects of the temporal lobes. Therefore, acyclovir has been started and a lumbar puncture has been scheduled to evaluate and rule out herpes encephalitis with HSV PCR. Neurology and Psychiatry had been consulted on the patient. Dictated by... Rosi Negrete/jordan TD: 07/16/2017 11:48 JOB #: [id number] Unit #: [id number] #: [id number] Patient: RICHARD JANE CONSULTATION REPORT Page 1 of 1 X X CONSULTATION REPORT
--- NOTE | ~2017-07-04 | CO ---
Unit #: [id number] #: [id number] Patient: RICHARD JANE [id number] [address] [place], [place] [address] [id number] I MR#: [id number] NAME: RICHARD JANE. ROOM: 341 Age: 62 Sex: F Admission Date: 07/04/2017 : 1955 Attending Physician: Bryce Tay M.D. Primary Care Physician: Primary Care Physician No Consultation Date: 07/06/2017 CONSULTATION REPORT BRIEF HISTORY The patient is a 62-year-old lady, who presents with frequent falling, confusion, dizziness, and found to be acutely alcohol intoxicated. I am asked to evaluate for a mass on the right tibial region. PAST MEDICAL HISTORY Cardiac dysfunction, hypertension, psych history. PAST SURGICAL HISTORY Hysterectomy, thyroid radiation. HOME MEDICATIONS Baclofen, Lasix, lactulose, Topamax, vitamin C, folic acid, Protonix, and Synthroid. SOCIAL HISTORY Daily alcohol use. No smoking. FAMILY HISTORY Unknown. REVIEW OF SYSTEMS No cardiopulmonary complaints at this time. Else, I attempted to review systems but the patient acutely confused. PHYSICAL EXAMINATION GENERAL: She is confused, but alert. HEENT: Unremarkable. NECK: Supple. No JVD. Trachea midline. LUNGS: Clear to auscultation. Bilateral breath sounds symmetric. CARDIOVASCULAR: Regular rate and rhythm. ABDOMEN: Soft, nontender, and nondistended. I palpate no masses. No hepatosplenomegaly. EXTREMITIES: Shows a 3 x 2 cm subcutaneous mass on the right tibia. This is freely mobile, superficial, and does not appear to be connected to the underlying bone. There is no erythema. There is no fluctuance. This is smooth in character. ASSESSMENT AND PLAN Likely benign lipoma. Would recommend observation only. Dictated by... El Leon M.D. Unit #: [id number] #: [id number] Patient: RICHARD JANE JNO/modl TD: 07/06/2017 07:49 JOB #: [id number] CONSULTATION REPORT Page 1 of 1 X El Leon MD CONSULTATION REPORT
--- NOTE | ~2017-07-04 | FU ---
[facility] Nutrition Therapy DATE: 07/12/17 Patient: RICHARD JANE Physician: ANY Address: [address] [place] [address] Room/Bed: [address] [place] [address], Zip: [place] [address] Admit Date: 07/04/17 Date of : 55 Height: 5 5 Weight: 152 69 NUTRITION MONITORING/FOLLOW-UP: Reason: Nutrition follow-up Admitting dx: 62 y/o female admitted with AMS, hepatic encephalopathy Anthropometrics: Ht: 65", admission wt: 69 kg, current wt: 69 kg, BMI: 25.3 Labs: AST 52, NH3 31, Mg 1.5 Meds: Xifaxan, lactulose, PPI, MVI with minerals, PO synthroid, psych meds noted GI: BM 07/11 Skin: skin tear RFA, excoriation morgna/buttock, no edema Estimated Nutrition Needs: 5728-2727 kcals/day (25-30 kcals/kg) 69-83 g protein/day (1-1.2 g/kg) Fluids consistent with kcal needs or per MD Assessment: Chart reviewed, events noted. Patient is no longer in restraints but still has AMS and confusion, is with a sitter. Dr. Persaud is now following her. Her ammonia levels have improved. She remains on a clear liquid diet (NPO/clears since admission x 8 days). Per the patient's sitter she only slept about a half hour last night, so she has been sleeping a lot today and has not had any clear liquids yet. There is a full tray at bedside with mixed abad Ensure clear. RD encouraged trying the Ensure clear. The patient herself is not appropriate to interview. Per [employer] yesterday the patient is cleared for regular texture and thin liquids, however it seems there are no plans to advance her diet as of yet due to her mental status. Also no plans for enteral nutrition. RD informed sitter we would continue to follow. See recs below. Dx: Inadequate oral intake r/t AMS, hepatic encephalopathy AEB NPO/clear liquids x 8 days - ACTIVE Intervention: Diet advancement per MD, continue ONS Monitoring, Evaluation and Goals: Previous goals: 1. PO intake 50-100% of meals - NOT MET 2. Maintain current weight status - MET 3. Prevent micro/macro nutrient deficiencies - IN PROGRESS (Mg low) [facility] Nutrition Therapy DATE: 07/12/17 Patient: RICHARD JANE Physician: ANY Address: [address] [place] [address] Room/Bed: [address] [place] [address], Zip: [place] [address] Admit Date: 07/04/17 Date of : 55 Height: 5 5 Weight: 152 69 New goals: 1. Tolerance of oral diet advancement with PO intake 50-100% of meals/supps. 2. Maintain current weight status. 3. Lytes WNL. Monitor: per protocol, criteria to determine if above goals met Recommendations: 1. Patient cleared for regular texture diet with thin liquids per [employer]. Advance as tolerated to full liquids then regular diet per MD. Continue Ensure clear TID until diet is further advanced, then change to Ensure Enlive TID. The patient has been NPO/clear liquids x 8 days (since admission). 2. Replace lytes prn (Mg low). 3. If the patient's oral diet is unable to be advanced suggest placing DHT and starting enteral nutrition with Jevity 1.5 @ 20 ml/hr. Increase by 10 ml q 8 hours until goal rate of 50 ml/hr is reached, to provide 1200 ml, 1800 kcals, 77 g protein and 912 ml water. Free water flushes per MD once at goal rate. RD will continue to follow Status: Moderate nutrition risk Respectfully, Selin Maguire, RD, LD Food and Nutritional Services [facility] cc: client file
--- NOTE | ~2017-07-04 | CO ---
Unit #: [id number] #: [id number] Patient: NELLY LYNCH H [id number] [facility] [address] [facility]. [place], [place] [address] [id number] I MR#: [id number] NAME: NELLY LYNCH ROOM: 341 Age: 62 Sex: F Admission Date: 07/04/2017 : 1955 Attending Physician: Harry Gordon M.D. Primary Care Physician: Primary Care Physician No Consultation Date: 07/15/2017 CONSULTATION REPORT REASON FOR CONSULTATION Followup. DISCUSSION Ms. Nelly Lynch is a 62-year-old female, seen in room 341, bed 1 on 07/15/2017 at [facility]. The patient dressed casually in hospital attire. The patient is lying comfortably in bed, talking to herself, picking on her clothes, unable to give any coherent history. No agitation. The patient did not have any sitter or any restraints, but unable to give any coherent history. Vital signs; temperature 98.4, pulse rate 127, respiratory rate 18, blood pressure 145/70, and oxygen saturation 100%. The patient is tolerating medication fairly well, no side effects from medication. Currently, on Cogentin 0.5 mg t.i.d., Haldol 5 mg t.i.d. REVIEW OF SYSTEMS Complete review of systems unremarkable. MENTAL STATUS EXAMINATION General appearance; the patient dressed casually in hospital attire, somewhat restless, anxious. Vital signs; temperature 98.4, pulse rate 127, respiratory rate 18, blood pressure 145/70, and oxygen saturation 100%. Attention span and concentration, poor. Speech, poor output, unable to understand. Orientation, unable to assess. Mood and affect, labile. Thought process and thought content, unable to assess. Recent and remote memory, unable to test. Language and fund of knowledge, impaired. Insight and judgment, impaired. DIAGNOSIS Psychiatric: Delirium, F05. ASSESSMENT/PLAN Recommending at this time to continue with current medication and therapeutic protocol. Continue with the above medication. If needed, consider further adjustment of medication. Please feel free to call if any questions, telephone #[phone]. Dictated by... Gerry Persaud M.D. MARIALUISA/jordan TD: 07/16/2017 09:49 Unit #: [id number] #: [id number] Patient: LUCINDANELLY JOB #: [id number] CONSULTATION REPORT Page 1 of 1 X Gerry Persaud MD CONSULTATION REPORT
--- NOTE | ~2017-07-04 | CR72 ---
[facility] A Service of [facility] & [facility] RADIOLOGY TEXT RESULTS PATIENT: RICHARD JANE LOCATION: [place] [address]- : [birth year] UNIT #: [id number] AGE: [address]: АЛЕКСАНДР SPANNUJ V SEX: F ORDER DR: [id number] [facility] [address] [facility]. [place], [place] [address] [id number] I MR#: [id number] Acc #: [id number] NAME: RICHARD JANE. : 1955 SEX: F STUDY DATE/TIME: 07/04/2017 18:30 UNIT: CEDOF ROOM: 21417 STUDY DESCRIPTION: CR Chest Single View Portable Attending Physician: Cora Fallon M.D. Ordering Physician: Gianfranco Noble M.D. Primary Care Physician: Primary Care Physician No MEDICAL IMAGING REPORT This report is preliminary unless electronic signature is present EXAM Portable chest HISTORY Shortness of air for 2 weeks. Frequent falls. FINDINGS The cardiac size and pulmonary vascularity are within normal limits. Mild elevation of the right hemidiaphragm. Minimal linear atelectasis in the left lower lung. No airspace infiltrates. No pleural effusions. Mild left upper thoracic curve. IMPRESSION No acute findings and no active disease. Dictated by... Teddy Ramsay M.D. THIS IS AN ELECTRONICALLY VERIFIED REPORT Teddy Ramsay M.D. at 07/05/2017 11:23 PM GUERRERO/radha TD: 07/05/2017 00:41 JOB #: [id number] MEDICAL IMAGING REPORT Page 1 of 1 COPY
--- NOTE | ~2017-07-04 | DS ---
Unit #: [id number] #: [id number] Patient: RICHARD JANE [id number] [address] [address] [id number] I MR#: [id number] NAME: RICHARD JANE. ROOM: 341 Age: 62 Sex: F Admission Date: 07/04/2017 : 1955 Discharge Date: 07/18/2017 Attending Physician: Harry Gordon M.D. Primary Care Physician: No Primary Care Physician DISCHARGE SUMMARY DISCHARGE DIAGNOSES 1. Encephalopathy, acute. 2. Hepatic encephalopathy. 3. Cirrhosis. 4. Drug abuse. 5. Tachycardia. 6. Urinary tract infection. 7. Accelerated hypertension. 8. Hypernatremia. 9. Accelerated hypertension. HOSPITAL COURSE The patient is a 62-year-old female with a history of alcohol abuse, cirrhosis and stroke with residual dysarthria. She presented to [facility] emergency department with a urinary tract infection and hepatic encephalopathy. Apparently she had stopped taking her lactulose and had become increasingly confused. The patient's ammonia level was noted to be 194 at the time of admission. She was started on lactulose and fluids and admitted. In addition to the above, the patient's tox screen was positive for benzodiazepines, marijuana and opiates. It is unclear where these prescription medications have come from and it is suspected that the patient is abusing these. The patient's urine culture ultimately grew Klebsiella which was treated with Rocephin. The patient's encephalopathy upon presentation resolved with lactulose. This particular encephalopathy consisted of aggression and the patient yelling inappropriately. As her ammonia level decreased, so did these symptoms. Despite her ammonia levels returning to normal, the patient did not become completely awake and alert. She remained extremely lethargic. She was arousable and would answer questions appropriately, but would not stay awake for any length of time. Secondary to this, the patient underwent EEG which was abnormal. The patient was started on Vimpat. Additionally, the patient had been started on Haldol and Cogentin for her aggressive behavior on admission. These medications were stopped at this time as well. The patient is much more awake at this time. It is unclear whether it was initiation of Vimpat or discontinuation of the Haldol and Cogentin which Unit #: [id number] #: [id number] Patient: RICHARD JANE has caused the turnaround. Regardless, discussion with family reveals that the patient is at baseline. Secondary to this, the patient is being discharged to rehab. During the course of her workup, the patient did undergo lumbar puncture. This was done because of the degree of somnolence. With resolution of her presenting symptoms, again it was unclear the cause of her somnolence. Lumbar puncture failed to reveal any causative factors. DISCHARGE MEDICATIONS 1. Vimpat 100 mg p.o. b.i.d. 2. ProAir Respiclick 2 puffs q.i.d. p.r.n. shortness of breath. 3. Lactulose 30 ml p.o. q.i.d. 4. Magnesium oxide 400 mg daily. 5. Xifaxan 400 mg p.o. b.i.d. 6. Lopressor 12.5 mg p.o. b.i.d. 7. Lasix 40 mg p.o. daily. 8. Astelin 2 sprays each nostril b.i.d. 9. Cozaar 25 mg daily. 10. Dewayne-Time 1 tablet p.o. t.i.d. 11. Fosamax 40 mg weekly. 12. Aspirin 81 mg daily. 13. Mobic 15 mg p.o. daily. 14. Nexium 40 mg p.o. daily. 15. Calcium plus vitamin D 2 tablets p.o. b.i.d. 16. Synthroid 175 mcg p.o. daily. 17. Folic acid 1 mg daily. 18. Vitamin C 500 mg p.o. t.i.d. FOLLOWUP 1. The patient is being discharged to rehab. 2. She is to follow up with her primary care provider upon discharge from that facility. Dictated by... Rosi Perkins/ashley TD: 07/18/2017 13:52 JOB #: [id number] DISCHARGE SUMMARY Page 1 of 1 X Harry Gordon MD X DISCHARGE SUMMARY
--- NOTE | ~2017-07-04 | MR18 ---
[facility] A Service of [facility] & [facility] RADIOLOGY TEXT RESULTS PATIENT: RICHARD JANE LOCATION: [facility] 341-01 : [birth year] UNIT #: [id number] AGE: [address]: SIGRID TAY V SEX: F ORDER DR: [id number] [facility] [address] [place], [place] [address] [id number] I MR#: [id number] #: [id number] NAME: RICHARD JANE. : 1955 SEX: F STUDY DATE/TIME: 07/13/2017 16:04 UNIT: [address] ROOM: [facility] STUDY DESCRIPTION: MR Brain Wo Contrast Attending Physician: Sigrid Tay M.D. Ordering Physician: Sigrid Tay M.D. Primary Care Physician: No Primary Care Physician MRI CENTER REPORT This report is preliminary unless electronic signature is present. EXAM MRI of the brain without contrast, dated 07/13/2017. COMPARISON MRI brain without contrast, dated 07/04/2016. HISTORY Memory loss, patient is incoherent. Traumatic brain injury 13 days ago. Cirrhosis, increased pneumonia, Graves disease. Patient recently has hepatic encephalopathy. FINDINGS Multisequence, multiplanar imaging of the brain was obtained without contrast. Significant motion artifact is noted at multiple sequences. There are patchy hyperintense T2-signal lesions noted in the white matter particularly in the periventricular white matter. Increased T2 signal is also suspected in bilateral basal ganglia with some suspicious increased T2-signal in the region of bilateral medial temporal lobes and uncus. No obvious large intracranial hemorrhage, hydrocephalus or discernible midline shift. Paranasal sinuses, orbits at the ocular structures and mastoids do not demonstrate any large lesions. Mild bilateral mastoid disease is seen. IMPRESSION 1. Significant motion artifact is noted in multiple sequences which significantly limits evaluation. An attempt has been made to characterize. 2. Multiple patchy hyperintense T2-signal lesions are noted in the brain involving the white matter. That could be related to chronic microvascular ischemic change or migraine based on age and statistics. 3. There is also increased T2 signal noted in bilateral basal ganglia and may be in the medial aspect of bilateral temporal lobes in the region of the uncus. This could be related to hepatic STS. [facility] A Service of [facility] RADIOLOGY TEXT RESULTS PATIENT: RICHARD JANE LOCATION: [facility] 341-01 : 55 UNIT #: [id number] AGE: [address]: SIGRID TAY V SEX: F ORDER DR: encephalopathy, given the appropriate clinical setting. 4. No acute stroke, space-occupying solid large intracranial mass, hydrocephalus or midline shift. Dictated by... Deborah Reyez M.D. THIS IS AN ELECTRONICALLY VERIFIED REPORT Deborah Reyez M.D. at 07/15/2017 9:15 PM CPR/jt TD: 07/14/2017 18:18 JOB #: [id number] MRI CENTER REPORT Page 1 of 1 COPY
--- NOTE | ~2017-07-04 | EE ---
Unit #: [id number] #: [id number] Patient: RICHARD JANE [id number] [address] [address] [id number] I MR#: [id number] NAME: RICHARD JANE. : 1955 SEX: F STUDY DATE/TIME: 07/16/2017 UNIT: C3[facility] PCU ROOM: 341 STUDY DESCRIPTION: EE Attending Physician: Harry Gordon M.D. Primary Care Physician: No Primary Care Physician NEURODIAGNOSTICS REPORT EXAM EEG. REFERRING PHYSICIAN Anita Kline M.D. REASON FOR THE STUDY Mental status changes, abnormal MRI, rule out seizures or status. EEG DESCRIPTION This is an inpatient, digitally recorded, multimontage adult EEG with leads placed according to the International 10/20 System. Hyperventilation and photic stimulation were not done. This EEG starts with sometimes sleep, sometimes with diffuse slowing but no good alpha activity. There were significant tremors. No seizures. No interictal discharges. No clinical events. No asymmetry. It was reactive with motion artifact. Hyperventilation and photic stimulation was not done. IMPRESSION This is an abnormal EEG showing diffuse slowing which is indicative of encephalopathy that is nonspecific, nothing suggesting seizure or status. Clinical correlation is recommended. Dictated by... Rosi Cortes/maryann TD: 07/18/2017 09:32 JOB #: [id number] Unit #: [id number] #: [id number] Patient: RICHARD JANE NEURODIAGNOSTICS REPORT Page 1 of 1 X Anita Kline MD NEURODIAGNOSTICS REPORT
--- NOTE | ~2017-07-04 | CO ---
Unit #: [id number] #: [id number] Patient: NELLY LYNCH [id number] [place] [address] [facility]. [place], [place] [address] [id number] I MR#: [id number] NAME: NELLY LYNCH. ROOM: 341 Age: 62 Sex: F Admission Date: 07/04/2017 : 1955 Attending Physician: Harry Gordon M.D. Primary Care Physician: Primary Care Physician No Consultation Date: 07/18/2017 CONSULTATION REPORT REASON FOR CONSULTATION Followup. DISCUSSION Ms. Nelly Lynch is a 62-year-old female, seen in room 341, bed 1 on 07/18/2017 at [facility]. The patient dressed casually, lying comfortably in bed. The patient was more awake, alert, and coherent, able to answer questions appropriately, but still having problem with confusion. The patient is showing much improvement and no agitation. Denied any thoughts of harming self or others. The patient's vital signs; temperature 97.5, pulse 112, respirations 18, blood pressure 137/64, and oxygen saturation 100%. REVIEW OF SYSTEMS Complete review of systems unremarkable. MENTAL STATUS EXAMINATION General appearance; the patient dressed in hospital attire, lying comfortably in bed, able to eat her breakfast slowly. Attention span and concentration, poor. Speech, slow in volume. Oriented in self and place. Mood and affect, flat. Thought process, circumstantial. Thought content; guarded and paranoid, but denied any thoughts of harming self or others. Recent and remote memory, fair to poor. Language, fair. Fund of knowledge, fair. Insight and judgment, fair to slightly impaired. DIAGNOSES Psychiatric: Delirium, F05, improving; major depressive disorder, recurrent, severe, F33.2. ASSESSMENT/PLAN 1. Supportive psychotherapy and psychoeducation provided to the patient. 2. Educated about benefits and side effects of medication and course and prognosis of illness. 3. Recommending to continue with current medication. The patient is doing well without the Haldol, if needed, consider a low-dose. Based on the current assessment recommending that the patient is unable to make informed medical decision at this time and the patient will be benefitted with [id number], the dog day care attendant is currently working on that. Please feel free to call if any questions, telephone #[phone]. Dictated by... Gerry Persaud M.D. Unit #: [id number] #: [id number] Patient: NELLY LYNCH MARIALUISA/modl TD: 07/19/2017 20:37 JOB #: [id number] CONSULTATION REPORT Page 1 of 1 X Gerry Persaud MD X CONSULTATION REPORT
--- NOTE | ~2017-07-04 | FU ---
[facility] Nutrition Therapy DATE: 07/16/17 Patient: RICHARD JANE Physician: ANY Address: [address] [place] [address] Room/Bed: [address] [place] [address], Zip: [place] [address] Admit Date: 07/04/17 Date of : 55 Height: 5 5 Weight: 141 64.3 NUTRITION MONITORING/FOLLOW-UP: Reason: FOLLOW-UP PT OFF OF FLOOR FOR PROCEDURE AT TIME OF VISIT. PER RN, PT EATS IF BEING FED. PT REMAINS ON CLEAR LIQUID DIET + ENSURE CLEAR TID. (NPO/CLEAR X [address] TO FOLLOW ON 07/16. RECOMMENDATIONS: 1. CONSIDER ATOMIC PHYSICS PROFESSOR EVAL FOR SAFE PO ADVANCEMENT 2. SEE RD RECOMMENDATIONS ON 07/12/17 FOR ALTERNATIVE NUTRITION SUPPORT, IF FEASIBLE Respectfully, Heber Mejía RD, LD Food and Nutritional Services [facility] cc: client file
[~2017-07-04 15:23] MED LIST changes: -ASPIRIN EC81 M1 PO; -AZELASTINE137 MCG/01; -CALCIUM 500 +1 EAC5 PO; -FERRO-TIME325 MG PO; -LACTULOSE10 GM/152 PO; -LIORESAL10 MG PO; -LOPRESSOR PO; -MAG-OX 400400 M1 PO; -MOBIC15 MG PO; -NEXIUM PO; -PROAIR RESPICL90 MCG INH; -SYNTHROID175 MCG PO; -VITAMIN C500 MG PO
[2017-07-04 18:13] LABS: BASOPHIL% 0.2 % (0-2.5); EOSINOPHIL# 0.1 X10e3 (0-0.7); EOSINOPHIL% 1.2 % (0.0-7.0); HEMATOCRIT 41.6 % (35.0-45.0); HEMOGLOBIN 13.9 gm/dL (12.0-16.0); LYMPHOCYTE# 1.9 X10e3 (1.0-3.5); LYMPHOCYTE% 22.6 % (17.0-45.0); MEAN CELL VOLUME 101.4 FL (83-96); MEAN CORPUSCULAR HEMOGLOBIN 33.9 PG (28-34); MEAN CORPUSCULAR HGB CONC 33.4 g/dL (30-36); MEAN PLATELET VOLUME 7.9 FL (6.5-11.5); MONOCYTE# 0.8 X10e3 (0-1.0); MONOCYTE% 9.8 % (3.0-12.0); NEUTROPHIL# 5.6 X10e3 (1.5-7.1); NEUTROPHIL% 66.2 % (40-75); PLATELET COUNT 113 X10e3 (140-420); RED CELL DISTRIBUTION WIDTH 14.9 % (11.0-15.5); WHITE BLOOD COUNT 8.4 X10e3 (4.0-10.5)
[2017-07-04 18:21] LABS: DIFF IND NO
[2017-07-04 18:25] LABS: ALBUMIN SERUM 3.4 g/dL (3.5-5.0); BILIRUBIN, DIRECT 0.5 mg/dL (0.0-0.2); BILIRUBIN,INDIRECT 1.3 mg/dL (0.0-0.9); BILIRUBIN,TOTAL 1.8 mg/dL (0.2-2.0); BUN/CREATININE RATIO 25.55; CALCIUM SERUM 10.2 mg/dL (8.4-10.2); CREATININE SERUM 0.9 mg/dL (0.6-1.4); GLOM FILT RATE Estimated 79.5 mL/min (>60); POTASSIUM 3.6 mmol/L (3.5-5.1); PROTEIN TOTAL SERUM 6.5 g/dL (6.0-8.3)
[2017-07-04 20:33] LABS: URINE SOURCE CLEAN CATCH
[2017-07-04 20:37] LABS: URINE APPEARANCE CLOUDY; URINE BILIRUBIN NEG (NEG); URINE BLOOD NEG (NEG); URINE COLOR YELLOW; URINE GLUCOSE NEG (NEG); URINE KETONE TRACE (NEG); URINE LEUKOCYTE ESTERASE 1+ (NEG); URINE NITRATE NEG (NEG); URINE PROTEIN NEG (NEG); URINE SPECIFIC GRAVITY 1.026 (1.003-1.035)
[2017-07-04 20:40] LABS: CULTURE INDICATED? YES; U HYALINE CASTS AUWI 0-2 /[LPF]; URBCS1 AUWI 0-2 /[HPF] (0-2); URINE BACTERIA AUWI 4+ (NEGATIVE); URINE SQUAMOUS EPITHELIAL CELL NONE SEEN /[HPF]
[2017-07-04 20:55] LABS: AMPHETAMINE NEG (NEG); BARBITURATES NEG (NEG); BENZODIAZEPINES POS (NEG); COCAINE NEG (NEG); MARIJUANA POS (NEG); OPIATES POS (NEG); TRICYCLIC ANTIDEPRESSANTS NEG (NEG); U METHADONE NEG (NEG)
[2017-07-05] MEDS ORDERED: FOSAMAX70 MG PO
[2017-07-05] MEDS ORDERED: PROAIR RESPICL90 MCG INH
[2017-07-05] MEDS ORDERED: ASPIRIN EC81 M1 PO (00:01)
[2017-07-05] MEDS ORDERED: VITAMIN C500 MG PO (00:01)
[2017-07-05] MEDS ORDERED: AZELASTINE137 MCG/01 (00:02)
[2017-07-05] MEDS ORDERED: LIORESAL10 MG PO (00:02)
[2017-07-05] MEDS ORDERED: NEXIUM PO (00:03)
[2017-07-05] MEDS ORDERED: CALCIUM 500 +1 EAC5 PO (00:03)
[2017-07-05] MEDS ORDERED: FOLIC ACID1 MG PO (00:03)
[2017-07-05] MEDS ORDERED: FERRO-TIME325 MG PO (00:03)
[2017-07-05] MEDS ORDERED: LASIX PO (00:03)
[2017-07-05] MEDS ORDERED: COZAAR25 MG PO (00:04)
[2017-07-05] MEDS ORDERED: LACTULOSE10 GM/152 PO (00:04)
[2017-07-05] MEDS ORDERED: MAG-OX 400400 M1 PO (00:04)
[2017-07-05] MEDS ORDERED: SYNTHROID175 MCG PO (00:04)
[2017-07-05] MEDS ORDERED: LOPRESSOR PO (00:05)
[2017-07-05] MEDS ORDERED: XIFAXAN550 MG PO (00:05)
[2017-07-05] MEDS ORDERED: MOBIC15 MG PO (00:05)
[2017-07-05 07:55] LABS: HEMATOCRIT 36.6 % (35.0-45.0); HEMOGLOBIN 12.5 gm/dL (12.0-16.0); MEAN CELL VOLUME 100.6 FL (83-96); MEAN CORPUSCULAR HEMOGLOBIN 34.2 PG (28-34); MEAN PLATELET VOLUME 7.8 FL (6.5-11.5); RED BLOOD COUNT 3.64 X10e (3.90-5.30); RED CELL DISTRIBUTION WIDTH 14.8 % (11.0-15.5); WHITE BLOOD COUNT 7.4 X10e3 (4.0-10.5)
[2017-07-05 08:21] LABS: BUN/CREATININE RATIO 25.71; CALCIUM SERUM 9.9 mg/dL (8.4-10.2); CREATININE SERUM 0.7 mg/dL (0.6-1.4); GLOM FILT RATE Estimated 107.6 mL/min (>60); POTASSIUM 3.3 mmol/L (3.5-5.1)
[2017-07-05 22:57] LABS: BUN/CREATININE RATIO 22.5; CALCIUM SERUM 9.9 mg/dL (8.4-10.2); CREATININE SERUM 0.8 mg/dL (0.6-1.4); GLOM FILT RATE Estimated 91.7 mL/min (>60); POTASSIUM 3.9 mmol/L (3.5-5.1)
[2017-07-06 04:05] LABS: BUN/CREATININE RATIO 22.5; CALCIUM SERUM 9.8 mg/dL (8.4-10.2); CREATININE SERUM 0.8 mg/dL (0.6-1.4); GLOM FILT RATE Estimated 91.7 mL/min (>60); MAGNESIUM 1.7 mg/dL (1.6-3.0); POTASSIUM 3.8 mmol/L (3.5-5.1)
[2017-07-07 08:47] LABS: BUN/CREATININE RATIO 16.66; CALCIUM SERUM 8.8 mg/dL (8.4-10.2); CREATININE SERUM 0.6 mg/dL (0.6-1.4); GLOM FILT RATE Estimated 113.2 mL/min (>60); MAGNESIUM 1.6 mg/dL (1.6-3.0); POTASSIUM 3.6 mmol/L (3.5-5.1)
[2017-07-07 08:54] LABS: HEMATOCRIT 38.1 % (35.0-45.0); HEMOGLOBIN 12.7 gm/dL (12.0-16.0); MEAN CELL VOLUME 103.4 FL (83-96); MEAN CORPUSCULAR HEMOGLOBIN 34.4 PG (28-34); MEAN CORPUSCULAR HGB CONC 33.3 g/dL (30-36); MEAN PLATELET VOLUME 8.3 FL (6.5-11.5); RED BLOOD COUNT 3.68 X10e (3.90-5.30); RED CELL DISTRIBUTION WIDTH 15.1 % (11.0-15.5)
[2017-07-07 14:52] LABS: ALBUMIN SERUM 2.9 g/dL (3.5-5.0); BILIRUBIN, DIRECT 0.5 mg/dL (0.0-0.2); BILIRUBIN,INDIRECT 1.6 mg/dL (0.0-0.9); BILIRUBIN,TOTAL 2.1 mg/dL (0.2-2.0); PROTEIN TOTAL SERUM 5.8 g/dL (6.0-8.3)
[2017-07-08 08:22] LABS: HEMATOCRIT 37.7 % (35.0-45.0); HEMOGLOBIN 12.8 gm/dL (12.0-16.0); MEAN CELL VOLUME 100.8 FL (83-96); MEAN CORPUSCULAR HEMOGLOBIN 34.2 PG (28-34); MEAN CORPUSCULAR HGB CONC 33.9 g/dL (30-36); MEAN PLATELET VOLUME 8.1 FL (6.5-11.5); RED BLOOD COUNT 3.74 X10e (3.90-5.30); RED CELL DISTRIBUTION WIDTH 14.8 % (11.0-15.5); WHITE BLOOD COUNT 7.4 X10e3 (4.0-10.5)
[2017-07-08 08:49] LABS: CALCIUM SERUM 8.8 mg/dL (8.4-10.2); CREATININE SERUM 0.6 mg/dL (0.6-1.4); GLOM FILT RATE Estimated 113.2 mL/min (>60); MAGNESIUM 1.4 mg/dL (1.6-3.0); POTASSIUM 3.3 mmol/L (3.5-5.1)
[2017-07-08 16:41] LABS: CALCIUM SERUM 8.9 mg/dL (8.4-10.2); CREATININE SERUM 0.6 mg/dL (0.6-1.4); GLOM FILT RATE Estimated 113.2 mL/min (>60); POTASSIUM 3.4 mmol/L (3.5-5.1)
[2017-07-09 11:49] LABS: CALCIUM SERUM 8.7 mg/dL (8.4-10.2); CREATININE SERUM 0.5 mg/dL (0.6-1.4); GLOM FILT RATE Estimated 120.2 mL/min (>60); MAGNESIUM 1.3 mg/dL (1.6-3.0); POTASSIUM 3.5 mmol/L (3.5-5.1)
[2017-07-09 22:45] LABS: HEMATOCRIT 38.3 % (35.0-45.0); HEMOGLOBIN 13.3 gm/dL (12.0-16.0); MEAN CORPUSCULAR HEMOGLOBIN 34.3 PG (28-34); MEAN CORPUSCULAR HGB CONC 34.6 g/dL (30-36); MEAN PLATELET VOLUME 7.2 FL (6.5-11.5); RED BLOOD COUNT 3.87 X10e (3.90-5.30); RED CELL DISTRIBUTION WIDTH 14.8 % (11.0-15.5); WHITE BLOOD COUNT 7.3 X10e3 (4.0-10.5)
[2017-07-10 07:02] LABS: MAGNESIUM 1.6 mg/dL (1.6-3.0); POTASSIUM 3.7 mmol/L (3.5-5.1)
[2017-07-11 08:23] LABS: ALBUMIN SERUM 2.8 g/dL (3.5-5.0); BILIRUBIN,TOTAL 1.7 mg/dL (0.2-2.0); CALCIUM SERUM 9.6 mg/dL (8.4-10.2); CREATININE SERUM 0.5 mg/dL (0.6-1.4); GLOM FILT RATE Estimated 120.2 mL/min (>60); POTASSIUM 3.7 mmol/L (3.5-5.1); PROTEIN TOTAL SERUM 5.7 g/dL (6.0-8.3)
[2017-07-12 09:34] LABS: ALBUMIN SERUM 2.6 g/dL (3.5-5.0); BILIRUBIN,TOTAL 1.3 mg/dL (0.2-2.0); BUN/CREATININE RATIO 17.14; CALCIUM SERUM 9.9 mg/dL (8.4-10.2); CREATININE SERUM 0.7 mg/dL (0.6-1.4); GLOM FILT RATE Estimated 107.6 mL/min (>60); MAGNESIUM 1.5 mg/dL (1.6-3.0); POTASSIUM 3.6 mmol/L (3.5-5.1); PROTEIN TOTAL SERUM 5.4 g/dL (6.0-8.3)
[2017-07-13 05:18] LABS: HEMATOCRIT 33.5 % (35.0-45.0); HEMOGLOBIN 11.7 gm/dL (12.0-16.0); MEAN CELL VOLUME 99.2 FL (83-96); MEAN CORPUSCULAR HEMOGLOBIN 34.6 PG (28-34); MEAN CORPUSCULAR HGB CONC 34.9 g/dL (30-36); MEAN PLATELET VOLUME 7.2 FL (6.5-11.5); RED BLOOD COUNT 3.38 X10e (3.90-5.30); RED CELL DISTRIBUTION WIDTH 14.4 % (11.0-15.5); WHITE BLOOD COUNT 7.2 X10e3 (4.0-10.5)
[2017-07-13 06:04] LABS: ALBUMIN SERUM 2.7 g/dL (3.5-5.0); BILIRUBIN,TOTAL 1.5 mg/dL (0.2-2.0); BUN/CREATININE RATIO 21.66; CREATININE SERUM 0.6 mg/dL (0.6-1.4); GLOM FILT RATE Estimated 113.2 mL/min (>60); POTASSIUM 3.6 mmol/L (3.5-5.1); PROTEIN TOTAL SERUM 5.5 g/dL (6.0-8.3)
[2017-07-13 14:04] LABS: THYROID STIMULATING HORMONE 0.06 uIU/ml (0.34-5.60)
[2017-07-13 14:11] LABS: FREE THYROXIN (T4) 2.8 ng/dL (0.58-1.64)
[2017-07-14 07:02] LABS: CREATININE SERUM 0.7 mg/dL (0.6-1.4); GLOM FILT RATE Estimated 107.6 mL/min (>60); POTASSIUM 3.6 mmol/L (3.5-5.1)
[2017-07-14 22:16] LABS: URBCS1 AUWI 0-2 /[HPF] (0-2); URINE APPEARANCE CLEAR; URINE BACTERIA AUWI NEG (NEGATIVE); URINE BILIRUBIN NEG (NEG); URINE BLOOD NEG (NEG); URINE COLOR DK YELLOW; URINE GLUCOSE NEG (NEG); URINE KETONE TRACE (NEG); URINE LEUKOCYTE ESTERASE 1+ (NEG); URINE NITRATE NEG (NEG); URINE PROTEIN NEG (NEG); URINE SPECIFIC GRAVITY 1.025 (1.003-1.035); URINE SQUAMOUS EPITHELIAL CELL NONE SEEN /[HPF]; URINE UROBILINOGEN 0.2 MG/DL (NEG)
[2017-07-15 08:55] LABS: BUN/CREATININE RATIO 18.57; CALCIUM SERUM 9.6 mg/dL (8.4-10.2); CREATININE SERUM 0.7 mg/dL (0.6-1.4); GLOM FILT RATE Estimated 107.6 mL/min (>60); POTASSIUM 3.7 mmol/L (3.5-5.1)
[2017-07-15 15:37] LABS: FOLATE (FOLIC ACID) 20.8 ng/mL (>5.8)
[2017-07-16 08:44] LABS: BASOPHIL% 0.3 % (0-2.5); EOSINOPHIL# 0.1 X10e3 (0-0.7); EOSINOPHIL% 0.8 % (0.0-7.0); HEMATOCRIT 32.7 % (35.0-45.0); HEMOGLOBIN 11.3 gm/dL (12.0-16.0); LYMPHOCYTE# 1.2 X10e3 (1.0-3.5); LYMPHOCYTE% 18.7 % (17.0-45.0); MEAN CORPUSCULAR HEMOGLOBIN 34.6 PG (28-34); MEAN CORPUSCULAR HGB CONC 34.5 g/dL (30-36); MONOCYTE% 16.1 % (3.0-12.0); NEUTROPHIL% 64.1 % (40-75); PLATELET COUNT 135 X10e3 (140-420); RED BLOOD COUNT 3.27 X10e (3.90-5.30); RED CELL DISTRIBUTION WIDTH 14.5 % (11.0-15.5); WHITE BLOOD COUNT 6.3 X10e3 (4.0-10.5)
[2017-07-16 08:45] LABS: DIFF IND NO
[2017-07-16 09:02] LABS: INR 1.3; PARTIAL THROMBOPLASTIN TIME 24.5 SECONDS (23.5-31.3); PROTHROMBIN TIME (PATIENT) 13.7 SECONDS (10.0-11.7)
[2017-07-16 10:51] LABS: GLUCOSE-CSF 61 mg/dL (50-80); PROTEIN-CSF 61 mg/dL (15-45)
[2017-07-16 10:54] LABS: CSF APPEARANCE CLEAR (CLEAR); CSF RBC 48 CMM (0); CSF TUBE NUMBER 3; CSF WBC 2 CMM (0-8); CSF XANTHACHROMIC NO
[2017-07-16 11:30] LABS: CSF LYMPHOCYTE 82 %; CSF MONOCYTE 16 %; CSF NEUTROPHIL 2 %
[2017-07-17 06:01] LABS: HEMATOCRIT 29.4 % (35.0-45.0); HEMOGLOBIN 10.2 gm/dL (12.0-16.0); MEAN CELL VOLUME 99.8 FL (83-96); MEAN CORPUSCULAR HEMOGLOBIN 34.6 PG (28-34); MEAN CORPUSCULAR HGB CONC 34.7 g/dL (30-36); MEAN PLATELET VOLUME 6.8 FL (6.5-11.5); RED BLOOD COUNT 2.95 X10e (3.90-5.30); RED CELL DISTRIBUTION WIDTH 14.4 % (11.0-15.5); WHITE BLOOD COUNT 5.9 X10e3 (4.0-10.5)
[2017-07-17 06:15] LABS: INR 1.3; PROTHROMBIN TIME (PATIENT) 13.9 SECONDS (10.0-11.7)
[2017-07-17 08:14] LABS: ALBUMIN SERUM 2.4 g/dL (3.5-5.0); BILIRUBIN,TOTAL 1.6 mg/dL (0.2-2.0); BUN/CREATININE RATIO 18.88; CALCIUM SERUM 9.6 mg/dL (8.4-10.2); CREATININE SERUM 0.9 mg/dL (0.6-1.4); GLOM FILT RATE Estimated 79.5 mL/min (>60); POTASSIUM 4.1 mmol/L (3.5-5.1); PROTEIN TOTAL SERUM 5.4 g/dL (6.0-8.3)
[2017-07-18 06:09] LABS: HEMATOCRIT 27.3 % (35.0-45.0); HEMOGLOBIN 9.5 gm/dL (12.0-16.0); MEAN CELL VOLUME 99.7 FL (83-96); MEAN CORPUSCULAR HEMOGLOBIN 34.6 PG (28-34); MEAN CORPUSCULAR HGB CONC 34.7 g/dL (30-36); MEAN PLATELET VOLUME 6.9 FL (6.5-11.5); RED BLOOD COUNT 2.74 X10e (3.90-5.30); RED CELL DISTRIBUTION WIDTH 14.1 % (11.0-15.5)
[2017-07-18 06:41] LABS: BUN/CREATININE RATIO 13.33; CREATININE SERUM 1.5 mg/dL (0.6-1.4); GLOM FILT RATE Estimated 42.8 mL/min (>60); MAGNESIUM 1.9 mg/dL (1.6-3.0); POTASSIUM 3.7 mmol/L (3.5-5.1)
== END 2017-07-19 00:57 | DRG 441 ==
LOC: CED 15:23 → C3A PCU 23:20 → CEDOF 23:20 → CED 23:30 → CEDOF 23:30 → C3A PCU 07-05 00:53
PROVIDERS: Emergency Medicine; Family Medicine; Internal Medicine; Psychiatry & Neurology Neurology; Radiology Diagnostic Radiology
PROC: 009U3ZX Drainage of Spinal Canal, Percutaneous Approach, Diagnostic (ICD-10-PCS; principal; 2017-07-16)
PROC: B01BYZZ Fluoroscopy of Spinal Cord using Other Contrast (ICD-10-PCS; 2017-07-16)
PROC: 05H933Z Insertion of Infusion Device into Right Brachial Vein, Percutaneous Approach (ICD-10-PCS; 2017-07-16)
DX: K72.90 Hepatic failure, unspecified without coma (principal); G93.41 Metabolic encephalopathy; F33.2 Major depressive disorder, recurrent severe without psychotic features; E87.0 Hyperosmolality and hypernatremia; F05 Delirium due to known physiological condition; N39.0 Urinary tract infection, site not specified; E87.1 Hypo-osmolality and hyponatremia; K70.30 Alcoholic cirrhosis of liver without ascites; F11.10 Opioid abuse, uncomplicated; F13.10 Sedative, hypnotic or anxiolytic abuse, uncomplicated; F12.10 Cannabis abuse, uncomplicated; B96.1 Klebsiella pneumoniae [K. pneumoniae] as the cause of diseases classified elsewhere; R00.0 Tachycardia, unspecified; I10 Essential (primary) hypertension; E03.9 Hypothyroidism, unspecified; I69.322 Dysarthria following cerebral infarction; Z87.820 Personal history of traumatic brain injury; Z87.891 Personal history of nicotine dependence; F29 Unspecified psychosis not due to a substance or known physiological condition; D17.23 Benign lipomatous neoplasm of skin and subcutaneous tissue of right leg; E87.6 Hypokalemia; Z90.710 Acquired absence of both cervix and uterus; Z88.0 Allergy status to penicillin; Z88.2 Allergy status to sulfonamides; Z88.8 Allergy status to other drugs, medicaments and biological substances; Z91.040 Latex allergy status; Z79.82 Long term (current) use of aspirin
CPT/HCPCS: 36415; 70551; 71010; 77003; 80048; 80053; 80076; 80307; 81003; 82140; 82533; 82607; 82746; 82945; 82947; 83735; 84132; 84157; 84439; 84443; 85025; 85027; 85610; 85730; 87040; 87086; 87088; 87186; 89051; 92610; 93005; 95816; 96360; 97116; 97163; 97166; 97530; 97535; 99285; C9113; C9254; G0480; G8978-GP; G8979-GP; G8987-GO; G8988-GO; G8996-GN; G8997-GN; G8998-GN; J0133; J0360; J0696; J1630; J2060; J2310; J2405; J3411; J3475; J3490